=== PATIENT | female | born 1955 | race African-American/Black ===

== ENCOUNTER 2018-10-31 19:33 | Inpatient (IN) | payer OTHER, SELFPAY ==
[2018-10-31 19:44] VITALS: BP 136/92; PULSE 66; RESP 20; TEMP 36.6; O2SAT 100
--- NOTE | 2018-10-31 19:51 | ED.NAVMDI ---
HPI - Nausea/Vomiting/Diarrhea General Chief complaint: Nausea/Vomiting/Diarrhea Stated complaint: N/D Time Seen by Provider: 10/31/18 19:51 Source: patient Mode of arrival: EMS Limitations: no limitations History of Present Illness HPI Narrative: The patient has been ill for 1 month. She describes abdominal pain and swelling. She has low back pain and bilateral leg pain. She has been vomiting. She has decreased appetite. Her bowels work but her bowel output has decreased. She does have loss of weight. She has no associated fever or chills. Urinary output is decreased. Her last urine output was yesterday. She denies dysuria or hematuria. She has no flank pain. She denies fever or chills. She underwent a laparoscopic-assisted hysterectomy with BSO about 1 year ago due to a an intramural leiomyoma. Following the surgery and endometrial adenocarcinoma grade 1 was discovered. Other than the fibroid uterus no other diagnosis was made. She has had no follow-up. Related Data Home Medications Medication Instructions Recorded Confirmed amlodipine 5 mg PO DAILY PRN 10/31/18 10/31/18 gabapentin 300 mg PO TID 10/31/18 10/31/18 ibuprofen 600 mg PO TID PRN 10/31/18 10/31/18 metformin 1,000 mg PO BID 10/31/18 10/31/18 Allergies Allergy/AdvReac Type Severity Reaction Status Date / Time No Known Drug Allergies Allergy Verified 10/31/18 21:27 Review of Systems Review of Systems ROS Unobtainable: All systems reviewed & are unremarkable except as noted in HPI and below Constitutional Denies chills, Denies fever(s), Reports lethargy and Reports weakness ENT Ears, Nose, Mouth, and Throat: Denies change in voice, Denies vertigo and Denies dizziness Cardiovascular Denies chest pain, Denies irregular heart rhythm, Denies lightheadedness, Denies palpitations, Denies dyspnea, Reports dyspnea on exertion and Denies orthopnea Respiratory Denies cough, Denies dyspnea, Reports dyspnea on exertion and Denies wheezing Gastrointestinal Gastrointestinal: Reports abdominal pain, Reports change in bowel habits, Denies nausea and Denies vomiting Genitourinary Denies hematuria, Denies flank pain, Denies urinary incontinence and Reports urinary urgency Musculoskeletal Reports back pain Integumentary/Breasts Denies erythema, Denies rash and Denies wounds Neurologic Denies vertigo, Denies dizziness and Reports weakness Endocrine Denies palpitations Allergic/Immunologic Denies wheezing PFSH Medical History Endometrial/uterine adenocarcinoma (Acute) Fibroid uterus (Acute) Surgical History S/P SOREN-BSO (Acute) Social History additional social history: She lives at home. Social History additional social history: She lives at home. Exam Initial Vital Signs Initial Vital Signs: Vital Signs Temperature 97.8 F 10/31/18 19:44 Pulse Rate 66 10/31/18 19:44 Respiratory Rate 20 10/31/18 19:44 Blood Pressure 136/92 H 10/31/18 19:44 Pulse Oximetry 100 10/31/18 19:44 Const General: cooperative, well developed and ill appearing Nutritional Appearance: well nourished Orientation: alert, awake, oriented x3 and not confused HENMT Mouth: oral mucosae normal Throat: posterior oropharynx normal Eyes General: appearance normal, both eyes and all related structures Eyelids: eyelids normal Conjunctivae: conjunctivae normal Sclera: sclerae normal (No icterus) Pupils: PERRL EOM: EOM intact bilaterally Neck Neck: normal visual inspection, trachea midline, No lymphadenopathy, No midline deformity and No JVD Lymphatic: No lymphedema Chest Chest: normal inspection of the chest Resp Effort & Inspection: normal respiratory effort, able to speak in complete sentences, no respiratory distress and no use of accessory muscles Auscultation: clear to auscultation bilaterally, no rales, no rhonchi and no wheezes Cardio Rate: regular rate Rhythm: regular rhythm Heart Sounds: no click, no gallops, no murmurs and no rubs Pulses: normal peripheral pulses GI Inspection: distended Palpation: soft, no hepatosplenomegaly, No guarding, mass (Large central abdominal mass), No pulsatile mass and tender Auscultation: normal bowel sounds Back/Spine/Pelvis Back: No CVA tenderness Skin General: no rashes or lesions noted Neuro General: alert, oriented x3, gait normal and no focal motor deficits Speech: speech normal Extrem General: full ROM, no pedal edema and no calf tenderness Psych Appearance: well kempt Mental Status: mental status grossly normal Attitude: cooperative Thought Content: normal and suicidality Judgment: judgment good Course Course Narrative: The patient was found to have urinary retention, containing 3.5 L of urine. A Murcia was placed with release of discomfort , the patient did feel much better. She has an elevated creatinine. Baseline labs are unavailable, this was felt to be an obstructive uropathy. On CT there is also a right fluid-filled lesion along the ascending colon, possibly metastatic lesion. I initially discussed the case with surgery, Dr. Starkey. The bladder is not ruptured. There is no obvious fistula. Findings would be atypical for a metastatic lesion. The process of hydrate her through the evening, and repeating labs was discussed. She may benefit from a repeat CT tomorrow. Surgery will consult tomorrow. I discussed the situation with the hospitalist,JULIAN Parks. The patient be admitted for ongoing care. Orders Ordered: ED Orders 10/31/18 20:23 CT abdomen pelvis w con Stat 10/31/18 20:35 Complete Blood Count AUTO DIFF Stat Comprehensive Metabolic Panel Stat Creatine Kinase Stat Lipase Stat 10/31/18 22:25 Ictotest Urine Stat Urinalysis and Microscopic Stat Sodium Chloride (Normal Saline 0.9%) 1,000 mls @ 200 mls/hr IV CONT MAGO Last Infusion: 10/31/18 22:22 Dose: 1,000 mls/hr Admin: 10/31/18 20:34 Dose: 200 mls/hr Discontinued Medications Ondansetron HCl (Zofran) 4 mg IV NOW ONE Stop: 10/31/18 20:24 Last Admin: 10/31/18 20:35 Dose: 4 mg Vital Signs - 8 hr 10/31/18 19:44 10/31/18 22:30 10/31/18 23:00 Temperature 97.8 F Pulse Rate 66 115 H 13 L Respiratory Rate 20 16 20 Blood Pressure 136/92 H Blood Pressure [Right Arm] 145/95 H 142/91 H Pulse Oximetry 100 98 98 10/31/18 23:43 Temperature Pulse Rate 110 H Respiratory Rate Blood Pressure Blood Pressure [Right Arm] Pulse Oximetry MDM - Nausea/Vomiting/Diarrhea Lab Data Result diagrams: 10/31/18 20:35 10/31/18 20:35 Lab Results 10/31/18 10/31/18 10/31/18 Range/Units 20:35 20:35 20:35 WBC 15.1 H (4.5-11.0) X10^3/uL RBC 4.24 (4.0-5.2) X10^6/uL Hgb 12.5 (12.0-16.0) g/dL Hct 37.2 (36-46) % MCV 87.7 (80-100) fL MCH 29.4 (26-34) PG MCHC 33.6 (30-36) % RDW 15.3 H (11.6-14.8) % Plt Count 266 (150-400) X10^3/uL Neut % (Auto) 84.0 H (50-75) % Lymph % (Auto) 5.8 L (25-40) % Posey % (Auto) 9.1 (3-14) % Eos % (Auto) 0.4 L (2-4) % Baso % (Auto) 0.7 (0-2) % Neut # (Auto) 76343 H (5421-2863) /uL Lymph # (Auto) 900 L (2621-3214) /uL Posey # (Auto) 1400 H (0-900) /uL Eos # (Auto) 100 (0-450) /uL Baso # (Auto) 100 (0-100) /uL Sodium 137 (137-145) mmol/L Potassium 3.7 (3.4-5.1) mmol/L Chloride 105 (98-107) mmol/L Carbon Dioxide 19 L (22-32) mmol/L BUN 33 H (7-17) mg/dL Creatinine 1.50 H (0.52-1.04) mg/dL Estimated GFR 35.3 L (>60) mL/min BUN/Creatinine Ratio 22.0 (6-22) Glucose 123 H (80-110) mg/dL Calcium 9.6 (8.4-10.2) mg/dL Total Bilirubin 1.7 H (0.2-1.3) mg/dL AST 30 (14-36) IU/L ALT 42 (9-52) IU/L Alkaline Phosphatase 67 (38-126) U/L Total Creatine Kinase 176 H (30-135) U/L Total Protein 7.8 (6.3-8.2) g/dL Albumin 3.9 (3.5-5.0) g/dL Globulin 3.9 (1.7-4.1) g/dL Albumin/Globulin Ratio 1.0 (1.0-2.8) Lipase 81 (23-300) U/L Urine Color Urine Appearance Urine pH (4.5-8.0) Ur Specific [place] (1.000-1.035) Urine Protein (Negative) Urine Glucose (UA) (Negative) g/dL Urine Ketones (NEGATIVE) Urine Occult Blood (Negative) Urine Nitrate (Negative) Urine Bilirubin (NEGATIVE) Urine Ictotest (Negative) Urine Urobilinogen (0.2) E.U./dL Ur Leukocyte Esterase (NEGATIVE) Urine RBC (0-5/HPF) Urine WBC (0-5/HPF) Ur Squamous Epith Cells Amorphous Sediment Urine Bacteria (None) Ur Culture Indicated? 10/31/18 Range/Units 22:25 WBC (4.5-11.0) X10^3/uL RBC (4.0-5.2) X10^6/uL Hgb (12.0-16.0) g/dL Hct (36-46) % MCV (80-100) fL MCH (26-34) PG MCHC (30-36) % RDW (11.6-14.8) % Plt Count (150-400) X10^3/uL Neut % (Auto) (50-75) % Lymph % (Auto) (25-40) % Posey % (Auto) (3-14) % Eos % (Auto) (2-4) % Baso % (Auto) (0-2) % Neut # (Auto) (3134-1357) /uL Lymph # (Auto) (1474-0609) /uL Posey # (Auto) (0-900) /uL Eos # (Auto) (0-450) /uL Baso # (Auto) (0-100) /uL Sodium (137-145) mmol/L Potassium (3.4-5.1) mmol/L Chloride (98-107) mmol/L Carbon Dioxide (22-32) mmol/L BUN (7-17) mg/dL Creatinine (0.52-1.04) mg/dL Estimated GFR (>60) mL/min BUN/Creatinine Ratio (6-22) Glucose (80-110) mg/dL Calcium (8.4-10.2) mg/dL Total Bilirubin (0.2-1.3) mg/dL AST (14-36) IU/L ALT (9-52) IU/L Alkaline Phosphatase (38-126) U/L Total Creatine Kinase (30-135) U/L Total Protein (6.3-8.2) g/dL Albumin (3.5-5.0) g/dL Globulin (1.7-4.1) g/dL Albumin/Globulin Ratio (1.0-2.8) Lipase (23-300) U/L Urine Color Linnea Urine Appearance Cloudy Urine pH 5.0 (4.5-8.0) Ur Specific [place] 1.020 (1.000-1.035) Urine Protein 1+ H (Negative) Urine Glucose (UA) Negative (Negative) g/dL Urine Ketones Negative (NEGATIVE) Urine Occult Blood 3+ H (Negative) Urine Nitrate Negative (Negative) Urine Bilirubin 1+ H (NEGATIVE) Urine Ictotest Negative (Negative) Urine Urobilinogen 0.2 (0.2) E.U./dL Ur Leukocyte Esterase Negative (NEGATIVE) Urine RBC >100/hpf H (0-5/HPF) Urine WBC None seen (0-5/HPF) Ur Squamous Epith Cells 0-1 /hpf Amorphous Sediment 4+ Urine Bacteria None seen (None) Ur Culture Indicated? Cult not indicated Point of Care Testing Glucose POC [address] scan - abdomen: Radiologist's impression: [place] [address] CT Scan Report Signed Patient: Bina Lopez [facility]#: [id number] : 8Acct:[id number] Age/Sex: 63 / FDate of Service: 10/31/18 Loc: ED Accession Number: [id number] Procedure: CT abdomen pelvis w con Ordering Provider: Ish Chambers M.D. PROCEDURE: CT ABDOMEN PELVIS W CON INDICATIONS: Vomiting. H/O uterine cancer TECHNIQUE: After the administration of intravenous contrast, 5 mm thick sections acquired from the diaphragm to the symphysis. 5 mm coronal and sagittal reformats were acquired. For radiation dose reduction, the following was used: automated exposure control, adjustment of mA and/or kV according to patient size. COMPARISON: None. FINDINGS: Image quality: Excellent. ABDOMEN: Lung bases: Lung bases are clear. Heart size is normal. Solid organs: Liver is normal in size and enhancement. Gallbladder is distended.. Biliary system is non dilated. Pancreas enhances normally. Spleen is normal in size and enhancement. No adrenal nodules. Kidneys demonstrate normal size and enhancement, without hydronephrosis. Peritoneum and bowel: Bowel loops demonstrate normal wall thickness and caliber. No free fluid or air. Nodes and vessels: No retroperitoneal or mesenteric adenopathy by size criteria. Aorta and inferior vena cava are normal in size. Miscellaneous: No ventral hernias. PELVIS: Genitourinary: There is a massively enlarged fluid-filled central pelvic mass, which is either a markedly distended bladder or a extremely large cystic ovarian neoplasm measuring approximately 25.6 x 13.9 x 19.2 cm. There is a low density mass lateral to the ascending colon which measures 13.6 x 12.2 x 6.9 cm, consistent with a mucin producing metastatic lesion. Miscellaneous: No inguinal hernias or adenopathy. Bones: No suspicious bony lesions. No vertebral body compression fractures. IMPRESSION: 1. A remarkably large fluid contained central pelvic mass either represents a remarkably distended bladder or a cystic ovarian neoplasm. 2. There is a large presumed metastatic fluid-filled lesion lateral to the ascending colon. It may represent malignant ascites. Comment: Murcia catheter placement with differentiate between a cystic ovarian mass and a markedly distended bladder. Comment: Findings were discussed with Dr. Chambers at the time of study dictation. Dictated by: Martin Rodrigues M.D. on 10/31/2018 at 22:07 Approved by: Martin Rodrigues M.D. on 10/31/2018 at 22:20 Discharge Plan Departure Patient Disposition: Admitted as Observation Clinical Impression: Acute urinary retention, Obstructive uropathy Admit Date/Time: 10/31/18 23:41 Admit Provider: Arianna Parks
--- NOTE | 2018-10-31 20:23 | DI.CT.S_ITS ---
PROCEDURE: CT ABDOMEN PELVIS W CON INDICATIONS: Vomiting. H/O uterine cancer TECHNIQUE: After the administration of intravenous contrast, 5 mm thick sections acquired from the diaphragm to the symphysis. 5 mm coronal and sagittal reformats were acquired. For radiation dose reduction, the following was used: automated exposure control, adjustment of mA and/or kV according to patient size. COMPARISON: None. FINDINGS: Image quality: Excellent. ABDOMEN: Lung bases: Lung bases are clear. Heart size is normal. Solid organs: Liver is normal in size and enhancement. Gallbladder is distended.. Biliary system is non dilated. Pancreas enhances normally. Spleen is normal in size and enhancement. No adrenal nodules. Kidneys demonstrate normal size and enhancement, without hydronephrosis. Peritoneum and bowel: Bowel loops demonstrate normal wall thickness and caliber. No free fluid or air. Nodes and vessels: No retroperitoneal or mesenteric adenopathy by size criteria. Aorta and inferior vena cava are normal in size. Miscellaneous: No ventral hernias. PELVIS: Genitourinary: There is a massively enlarged fluid-filled central pelvic mass, which is either a markedly distended bladder or a extremely large cystic ovarian neoplasm measuring approximately 25.6 x 13.9 x 19.2 cm. There is a low density mass lateral to the ascending colon which measures 13.6 x 12.2 x 6.9 cm, consistent with a mucin producing metastatic lesion. Miscellaneous: No inguinal hernias or adenopathy. Bones: No suspicious bony lesions. No vertebral body compression fractures. IMPRESSION: 1. A remarkably large fluid contained central pelvic mass either represents a remarkably distended bladder or a cystic ovarian neoplasm. 2. There is a large presumed metastatic fluid-filled lesion lateral to the ascending colon. It may represent malignant ascites. Comment: Murcia catheter placement with differentiate between a cystic ovarian mass and a markedly distended bladder. Comment: Findings were discussed with Dr. Chambers at the time of study dictation. Dictated by: Martin Rodrigues M.D. on 10/31/2018 at 22:07 Approved by: Martin Rodrigues M.D. on 10/31/2018 at 22:20
[2018-10-31] MEDS: SODIUM CHLORIDE 0.9% 1,000 ML 200 ML IV (20:34)
[2018-10-31] MEDS: ONDANSETRON 4 MG/2 ML INJ IV (20:35)
[2018-10-31 20:46] LABS: Add Manual Diff / Slide Review NO; Basophils Absolute Auto 100 /uL (0-100); Basophils Percent Auto 0.7 % (0-2); Eosinophils Absolute Auto 100 /uL (0-450); Eosinophils Percent Auto 0.4 % (2-4); Hematocrit 37.2 % (36-46); Hemoglobin 12.5 g/dL (12.0-16.0); Lymphocytes Absolute Auto 900 /uL (1100-4500); Lymphocytes Percent Auto 5.8 % (25-40); Mean Corpuscular HGB Conc 33.6 % (30-36); Mean Corpuscular Hemoglobin 29.4 PG (26-34); Mean Corpuscular Volume 87.7 fL (80-100); Monocytes Absolute Auto 1400 /uL (0-900); Monocytes Percent Auto 9.1 % (3-14); Neutrophils Absolute Auto 12700 /uL (1500-7000); Platelet Count 266 X10^3/uL (150-400); Red Blood Cell Count 4.24 X10^6/uL (4.0-5.2); Red Cell Distribution Width 15.3 % (11.6-14.8); White Blood Cell Count 15.1 X10^3/uL (4.5-11.0)
[2018-10-31 21:13] LABS: Alanine Aminotransferase 42 IU/L (9-52); Albumin 3.9 g/dL (3.5-5.0); Alkaline Phosphatase 67 U/L (38-126); Aspartate Aminotransferase 30 IU/L (14-36); Bilirubin Total 1.7 mg/dL (0.2-1.3); Blood Urea Nitrogen 33 mg/dL (7-17); Calcium 9.6 mg/dL (8.4-10.2); Carbon Dioxide 19 mmol/L (22-32); Chloride 105 mmol/L (98-107); Estimated Glomerular Filt Rate 35.3 mL/min (>60); Globulin 3.9 g/dL (1.7-4.1); Glucose 123 mg/dL (80-110); HEMOLYSIS < 15 (0-50); Lipase 81 U/L (23-300); Potassium 3.7 mmol/L (3.4-5.1); Sodium 137 mmol/L (137-145); Total Protein 7.8 g/dL (6.3-8.2)
[2018-10-31 22:30] VITALS: BP 145/95; PULSE 115; RESP 16; O2SAT 98
[2018-10-31 22:44] LABS: Creatine Kinase 176 U/L (30-135)
[2018-10-31 22:58] LABS: Bacteria Urine None Seen; WBC Urine None Seen (0-5/HPF)
[2018-10-31 23:00] VITALS: BP 142/91; PULSE 13; RESP 20; O2SAT 98
[2018-10-31 23:04] LABS: Appearance Urine UA CLOUDY; Bilirubin Urine UA 1+ (NEGATIVE); Glucose Urine UA NEGATIVE (Negative); Ketones Urine UA NEGATIVE (NEGATIVE); Leukocyte Esterase Urine UA NEGATIVE (NEGATIVE); Nitrite Urine UA NEGATIVE (Negative); Occult Blood Urine UA 3+ (Negative); Protein Urine UA 1+ (Negative); Urobilinogen Urine UA 0.2 E.U./dL (0.2)
[2018-10-31 23:06] LABS: Color Urine UA Amber
[2018-10-31 23:16] LABS: Ictotest Urine Negative (Negative)
[2018-10-31 23:17] LABS: Amorphous Sediment Urine 4+; Culture Indicated Urine Cult Not Indicated; RBC Urine >100/HPF (0-5/HPF); Squamous Epithelial Cell Urine 0-1 /HPF
[2018-10-31 23:43] VITALS: PULSE 110
[2018-11-01] VITALS (7 sets, daily range): BP systolic 132–147; BP diastolic 69–93; PULSE 110–119; RESP 16–21; TEMP 35.7–36.7; O2SAT 98–100; BMI 29.9
--- NOTE | 2018-11-01 | DI.MRI.S_ITS ---
PROCEDURE: MR ABDOME PELVIS WWO CON INDICATIONS: Complex clinical history of reported prior endometrial polyp reportedly having malignancy, without subsequent followup. Also, worsening neuromuscular disorder and falls. 3 L bladder distention, treated with Murcia catheter. Ultrasound finding of right-sided lower extremity and pelvic vein DVT. Masslike structure versus hematoma right paracolic gutter. TECHNIQUE: Coronal HASTE, axial 2D FLASH in- and [id number]; axial breath-hold T2 FSE; dynamic axial VIBE during IV gadolinium administration; postgadolinium coronal VIBE or 2D FLASH with fat saturation from the hepatic dome to the iliac crests. COMPARISON: [facility], CT, CT ABDOMEN PELVIS W CON, 10/31/2018, 21:15. [facility], US, US ABDOMEN COMPLETE, 11/01/2018, 9:31. [facility][1], RG, CT HEAD W/O CONTRAST, 08/28/2018, 16:31. FINDINGS: Image quality: Excellent. Lung bases: No lesion. Solid organs and gallbladder: No lesion. Nodes and vessels: No lesion identified. Bowel and peritoneum: No intrinsic lesion seen. Along the right paracolic gutter corresponding to the findings of CT scanning there is a curvilinear masslike structure with a maximal AP and transverse dimension of 11.1 cm x 5.5 cm. This has a craniocaudad length of 16.[address] scanning. It tapers inferiorly into the pelvis. On precontrast T1 axial imaging this mass does not contain fluid levels or significant heterogeneity of the T1 signal. On postcontrast imaging this shows heterogeneous contrast enhancement, with an appearance of neoplasm rather than hematoma by MR scanning characteristics. Pelvis: The bladder on CT scanning had been markedly distended, and a Murcia catheter currently is in position emptying the bladder lumen largely. The bladder wall is thickened, measuring up to 2.3 cm but a discrete polypoid mass at the bladder itself is not present. Deep venous thrombosis seen at the right superior superficial femoral vein and extending contiguously into the common femoral vein does not clearly extend into the external iliac vein at this time. No left-sided DVT found. The inferior vena cava is patent. Bones and soft tissues: Note is made of a small amount of rim enhancing fluid at the lateral and medial border of the greater trochanter right hip. This is considered most likely evidence of prior trauma by position and appearance and the clinical history of multiple recent falls with injury on the right. The small fluid collections measure approximately 1.5 cm in maximal dimension each. IMPRESSION: 1. The masslike structure along the right paracolic gutter extending into the pelvis shows contrast enhancement and has an imaging characteristic of probable malignancy. This appears accessible for safe CT guided biopsy. The findings are not suggestive of posttraumatic hematoma as the underlying cause. 2. Ultrasound-documented DVT at the right lower extremity and groin area is seen to be present, nonocclusive, and does not extend at this time into the iliac veins on the right. 3. Gallbladder caliber is relatively large, a gallstone has been identified at the gallbladder neck area by ultrasound earlier today. This calculus is only partially visualized, and is not associated with evidence of acute cholecystitis. Gallbladder hydrops is suspected, and there is potential for progression to obstruction of the gallbladder given the position of the calculus identified at the gallbladder neck. Intrahepatic biliary distention is not present. 3. The bladder is now empty by a Murcia catheter centrally positioned. Bladder wall thickening is present but uniform, likely reflecting chronic distention. Resolution of previously identified right-sided hydronephrosis seen on prior CT scanning during imaging with extensive bladder distention at that time. 4. Suspect right hip region trauma given the presence of a small set of adjacent fluid collections abutting the greater trochanter both medially and laterally, without suspicion for hip fracture. Posttraumatic hematoma or seroma is the presumed cause. Dictated by: Matthias Campbell M.D. on 11/01/2018 at 14:37 Approved by: Matthias Campbell M.D. on 11/01/2018 at 14:55
--- NOTE | 2018-11-01 | DI.US.S_ITS ---
PROCEDURE: US ABDOMEN COMPLETE INDICATIONS: ASSESS KIDNEYS AND URETERS FOR MASS, CENTRAL MASS TECHNIQUE: Real-time scanning was performed of the abdominal and retroperitoneal organs, with image documentation. COMPARISON: [facility], CT, CT ABDOMEN PELVIS W CON, 10/31/2018, 21:15. FINDINGS: Liver: Liver is normal in size and homogeneous in echotexture, diffusely hyperechoic except for a small area of hypoechoic echotexture adjacent to the gallbladder fossa, measuring 7 x 10 x 18 mm, consistent with focal sparing from the otherwise diffuse presumed fatty infiltrate. Gallbladder: The gallbladder contains at least 1 ovoid stone measuring up to 6 x 11 x 17 mm with shadowing, at the gallbladder neck. This likely is a gallstone and does not appear entirely obstructive. Biliary ducts: Intrahepatic bile ducts are non-dilated. Extrahepatic bile duct caliber measures 6 mm. Normal is 6-7 mm or less in diameter, or 10 mm or less post-cholecystectomy. Pancreas: Visualized portions of the pancreas are sonographically normal. Spleen: Spleen is normal in size and homogeneous in echotexture. Kidneys: Kidneys are normal in size and echotexture. Right kidney measures 9.6 cm long; left kidney measures a similar 9.5 cm long, but is less well visualized due to bowel gas. On CT scanning the kidneys appear free of mass or calculus. Note is made of resolution of right-sided hydronephrosis present during CT scanning 10/31/18, 1 day ago. No hydronephrosis or nephrolithiasis. No solid masses. Aorta: Visualized aorta is normal in caliber at less than 3 cm. Iliacs: Proximal common iliac arteries are normal in caliber at less than 2.5 cm. IVC: Intrahepatic inferior vena cava is patent. Miscellaneous: No free abdominal fluid. The bladder is empty except for a Murcia catheter in place. The right lower quadrant there is a complex heterogeneous structure possibly hematoma or mass, measuring up to 5.3 x 7.0 cm in axial dimension and almost 13 cm craniocaudad. The patient reports a fall on the right side approximately 4 weeks ago. IMPRESSION: 1. Resolution of right sided hydronephrosis after drainage of the markedly distended bladder by a Murcia catheter in place. 2. No renal cortical mass is seen in the area where the right kidney can be effectively visualized. The left kidney is poorly seen due to bowel gas. Please refer also to the prior CT scanning and subsequent MR scanning over the prior 2 days that include visualization of the kidneys. 3. An ovoid complex structure is seen within the right paracolic gutter area, as was seen also during CT scanning 10/31/18, measuring up to 5.3 x 7.0 x 13.0 cm. This also wasn't well-seen by CT scanning, and also is evaluated by MR scanning. The appearance conceivably could represent a posttraumatic hematoma. 4. Ovoid shadowing gallstone within the gallbladder lumen at the gallbladder neck, but acute cholecystitis or biliary obstruction is not found. Dictated by: Mattihas Campbell M.D. on 11/01/2018 at 11:39 Approved by: Matthias Campbell M.D. on 11/01/2018 at 11:48
--- NOTE | 2018-11-01 | DI.US.S_ITS ---
PROCEDURE: US PERIPH VENOUS LOW EXTREM BI INDICATIONS: debility, dyspnea, calf pain, malignancy TECHNIQUE: Real-time imaging, as well as color and pulse Doppler interrogation, were performed of the deep veins of both legs from the inguinal ligament to the popliteal fossa. COMPARISON: None. FINDINGS: The bilateral assessment performed. No left-sided DVT found. There is thrombosis within the deep venous system of the right lower extremity, at the common femoral vein, the superficial femoral vein and extending into the popliteal vein. Right-sided thrombosis can be seen extending cephalad into the pelvis, involving the right iliac vein. IMPRESSION: Extensive right-sided deep venous thrombosis including extending cephalad from the common femoral vein into the iliac vein. The exact cephalad extent of pelvic deep venous thrombosis is not established by this study. It could be further established by CT scanning in venous phase of enhancement if clinically warranted. These findings were conveyed to the nurse caring for the patient to convey personally to the hospitalist, and I personally have attempted to reach the hospitalist also, accomplishing only a voicemail to Dr. Mclaughlin's cell phone number. I will continue to attempt to reach the hospitalist in person to discuss these findings. Dictated by: Matthias Campbell M.D. on 11/01/2018 at 8:55 Approved by: Matthias Campbell M.D. on 11/01/2018 at 8:59
--- NOTE | 2018-11-01 00:58 | P.HP_ITS ---
History of Present Illness Date Patient Seen: 11/01/18 Chief complaint: N/D Narrative: The patient is a 63-year-old AA female who presented to the ED with a 3 week history of nausea and vomiting. Patient has been having progressively deteriorating state of health since February of 2018. Prior to that she notes herself to be fairly healthy and fully ambulatory w/ PMH of HTN and DM 2T. Associated symptoms include difficulty swallowing (new symptom for patient ); however, she does note being able to manage oral secretions. Reports abdominal distention and dyspepsia; but no overt abdominal pain. Reports subjective fever and chills. Experienced dizziness and lightheadedness w/ position change. Patient reports an unintentional weight loss of 70-80 lb weight loss over the past 6 months. Notes joint and muscle pain. Reports progressive loss of function of lower extremities since March of 2018. Initially presented as lower back and hip pain (worse on the right) with progressive bilateral lower extremity weakness. Reports progressive loss of lower extremity function and ability to walk. Denies loss of bowel and bladder control. Currently, bed- bound and minimally ambulatory since July of 2018. Denies dysuria, hematuria. Notes decreased urine output. Reports having a neurosurgical evaluation w/ Micheline Nugent in July and a diagnosis of diabetic amyotrophy. Reports having EMG and MRI imaging done at that time. Patient was diagnosed with intramural leiomyoma and underwent laparoscopic-assisted hysterectomy with BSO 1 year ago, respectively. 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 However, from what patient reports, she understood this as fairly benign. 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 Phuong Martinez [facility]. Sarahi dick's PCP is Dr. Clarissa Metzger [facility]. Prior to February of 2018 patient was fully in functionally independent. She lives on her own, however visited her parents (who are in ill state of health themselves) in fall and was unable to leave due to progressive debility. At present time her aunt is visiting to help with the care of the patient. Patient has extensive family history of malignancy, father (colon cancer), mother (uterine and colon cancer), and sister ( (40 y.o.), pancreatic cancer. ED evaluation revealed abnormal CT imaging Remarkable for enlarged fluid- filled central pelvic mass, distended bladder, concern for a large ovarian neoplasm, a load density mass lateral to the ascending colon and concern for metastatic lesion. Patient History Medical History Endometrial/uterine adenocarcinoma (Acute) Fibroid uterus (Acute) Surgical History S/P SOREN-BSO (Acute) Social History additional social history: She lives at home. Meds Home Medications Medication Instructions Recorded Confirmed Type amlodipine 5 mg PO DAILY PRN 10/31/18 10/31/18 History gabapentin 300 mg PO TID 10/31/18 10/31/18 History ibuprofen 600 mg PO TID PRN 10/31/18 10/31/18 History metformin 1,000 mg PO BID 10/31/18 10/31/18 History Allergies Allergy/AdvReac Type Severity Reaction Status Date / Time No Known Drug Allergies Allergy Verified 10/31/18 21:27 Exam Vital Signs (past 8 hours): - 10/31/18 19:44 10/31/18 22:30 10/31/18 23:00 Temperature 97.8 F Pulse Rate 66 115 H 13 L Respiratory Rate 20 16 20 Blood Pressure 136/92 H Blood Pressure [Right Arm] 145/95 H 142/91 H Pulse Oximetry 100 98 98 10/31/18 23:43 11/01/18 00:30 Temperature Pulse Rate 110 H 110 H Respiratory Rate 21 Blood Pressure 140/69 Blood Pressure [Right Arm] Pulse Oximetry 99 Oxygen Delivery Method Room Air Objective Labs Result Diagrams: 10/31/18 20:35 10/31/18 20:35 Labs: Laboratory Results - last 24 hr 10/31/18 10/31/18 10/31/18 20:35 20:35 20:35 WBC 15.1 H RBC 4.24 Hgb 12.5 Hct 37.2 MCV 87.7 MCH 29.4 MCHC 33.6 RDW 15.3 H Plt Count 266 Neut % (Auto) 84.0 H Lymph % (Auto) 5.8 L [place] % (Auto) 9.1 Eos % (Auto) 0.4 L Baso % (Auto) 0.7 Neut # (Auto) 56205 H Lymph # (Auto) 900 L [place] # (Auto) 1400 H Eos # (Auto) 100 Baso # (Auto) 100 Sodium 137 Potassium 3.7 Chloride 105 Carbon Dioxide 19 L BUN 33 H Creatinine 1.50 H Estimated GFR 35.3 L BUN/Creatinine Ratio 22.0 Glucose 123 H Calcium 9.6 Total Bilirubin 1.7 H AST 30 ALT 42 Alkaline Phosphatase 67 Total Creatine Kinase 176 H Total Protein 7.8 Albumin 3.9 Globulin 3.9 Albumin/Globulin Ratio 1.0 Lipase 81 Urine Color Urine Appearance Urine pH Ur Specific [place] Urine Protein Urine Glucose (UA) Urine Ketones Urine Occult Blood Urine Nitrate Urine Bilirubin Urine Ictotest Urine Urobilinogen Ur Leukocyte Esterase Urine RBC Urine WBC Ur Squamous Epith Cells Amorphous Sediment Urine Bacteria Ur Culture Indicated? 10/31/18 22:25 WBC RBC Hgb Hct MCV MCH MCHC RDW Plt Count Neut % (Auto) Lymph % (Auto) [place] % (Auto) Eos % (Auto) Baso % (Auto) Neut # (Auto) Lymph # (Auto) [place] # (Auto) Eos # (Auto) Baso # (Auto) Sodium Potassium Chloride Carbon Dioxide BUN Creatinine Estimated GFR BUN/Creatinine Ratio Glucose Calcium Total Bilirubin AST ALT Alkaline Phosphatase Total Creatine Kinase Total Protein Albumin Globulin Albumin/Globulin Ratio Lipase Urine Color Linnea Urine Appearance Cloudy Urine pH 5.0 Ur Specific [place] 1.020 Urine Protein 1+ H Urine Glucose (UA) Negative Urine Ketones Negative Urine Occult Blood 3+ H Urine Nitrate Negative Urine Bilirubin 1+ H Urine Ictotest Negative Urine Urobilinogen 0.2 Ur Leukocyte Esterase Negative Urine RBC >100/hpf H Urine WBC None seen Ur Squamous Epith Cells 0-1 /hpf Amorphous Sediment 4+ Urine Bacteria None seen Ur Culture Indicated? Cult not indicated Assessment & Plan Assessment & Plan narrative: Acute urinary retention, present on admission 2/2 suspected obstructive uropathy, 2.5L urine output w/ bladder decompression - Murcia catheter in place for bladder decompression - IVF at 125 ml/hr - I/O monitoring - May need a urological evaluation Abnormal CT imaging, acute, present on admission pelvic mass vs. distended bladder vs large cystic ovarian neoplasm Kidneys noted to be normal in size and enhancement without hydronephrosis - follow-up imaging after bladder decompression was recommended Metastatic disease, acute, present on admission H/O endometrial adeno carcinoma grade [address] imagining remakable for low-density mass lateral to the ascending colon, 13.6 x 12.2 x 6.9 cm, consistent with mucin producing metastatic lesion - requires further workup - loss of lower extremity function, with recently presumed diagnosis of diabetic amyotrophy, will need to consider r/o metastasis to thoracic organs, peritonieum and IMPLEMENTATION SPECIALIST, will need an MRI - general surgery consulted in ED Muscle weakness, acute onset, rapidly worsening, present on admission Recent diagnosis of diabetic amyotrophy by neurosurgery, Dr. Micheline Nugent. DDx consider metastatic metastatic spread - request placed for records from neuro surgery, per patient had an EMG and MRI done in July - PT eval and treat Dyspnea, present on admission, reported by patient w/ associated bilateral calf tenderness, suspected malignancy - BLE venous duplex to r/o DVT - Check Trop - On lovenox VTE prophylactic dose, no prior h/o DVT or PE Dysphagia, acute onset - last 3 weeks, present on admission - NPO until seen by speech therapy - consult speech, eval and treat JASE, sCr 1.5, likely acute (baseline sCr unknown), present on admission - IV fluids - D/C metformin, received imaging with IV contrast - Trend renal fx Metabolic acidosis with normal AG, present on admission 2/2 JASE, hypovolemia, GI losses - IVF Leukocytosis, acute, present on admission WBC 15.1 subjective fever and chills. UA is not consistent with infectious process. potentially reactive. no signs of SIRS or sepsis. 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
--- NOTE | 2018-11-01 01:00 | PC.NURSE ---
Addendum entered by Nancie Keen R.N. 11/01/18 06:09: Admission assessment complete. pt reports a history of falls at home within the last 3 months, states her health has been deteriorating since the summer (2018). Has amyotrophy which is effecting the use of her lower extremities. Denying pain currently. Gave home medications (ibruprophen 600mg and gabepentin 300mg) to coordinator to place in pharmacy. Each bottle has pt label on it. Patient does have purse at bedside and declines the use of our safe. No hearing loss or aids, wears glasses. Original Note: pt arrived 0045. VS stable. Reporting pain 8/10 in bilateral legs and states its her baseline from neuropathy. Takes Gabapentin and metformin to manage diabetes (no insulin). Murcia draining to gravity with dark colored urine. pt reports utilizing briefs due to urgency issues. Her family provides care (aunt and parents). Patient is requesting bilingual social worker consult because she does not have any adaptive equipment at home. ER reports 3.5L emptied from bladder and pt reporting less abdominal distention since. pt thought the distention feeling was part of her neuropathy. pt is unable to move legs (bilateral) to gravity, able to help reposition and raise arms to gravity and resistance.
[2018-11-01] MEDS: SODIUM CHLORIDE 0.9% 1,000 ML 125 ML IV (06:33)
[2018-11-01 06:42] LABS: Add Manual Diff / Slide Review NO; Basophils Absolute Auto 0 /uL (0-100); Basophils Percent Auto 0.2 % (0-2); Eosinophils Absolute Auto 100 /uL (0-450); Eosinophils Percent Auto 0.6 % (2-4); Hematocrit 32.9 % (36-46); Lymphocytes Absolute Auto 1000 /uL (1100-4500); Lymphocytes Percent Auto 7.6 % (25-40); Mean Corpuscular HGB Conc 33.4 % (30-36); Mean Corpuscular Hemoglobin 29.3 PG (26-34); Mean Corpuscular Volume 87.7 fL (80-100); Monocytes Absolute Auto 1400 /uL (0-900); Monocytes Percent Auto 10.2 % (3-14); Neutrophils Absolute Auto 11100 /uL (1500-7000); Neutrophils Percent Auto 81.4 % (50-75); Platelet Count 222 X10^3/uL (150-400); Red Blood Cell Count 3.76 X10^6/uL (4.0-5.2); Red Cell Distribution Width 15.6 % (11.6-14.8); White Blood Cell Count 13.7 X10^3/uL (4.5-11.0)
[2018-11-01 06:53] LABS: Creatine Kinase 170 U/L (30-135)
[2018-11-01 06:54] LABS: BUN Creatinine Ratio 26.7 (6-22); Blood Urea Nitrogen 32 mg/dL (7-17); Calcium 8.7 mg/dL (8.4-10.2); Carbon Dioxide 20 mmol/L (22-32); Chloride 108 mmol/L (98-107); Estimated Glomerular Filt Rate 45.7 mL/min (>60); Glucose 96 mg/dL (80-110); HEMOLYSIS < 15 (0-50); Phosphorous 3.7 mg/dL (2.8-4.1); Potassium 3.4 mmol/L (3.4-5.1); Sodium 138 mmol/L (137-145)
[2018-11-01 07:06] LABS: Troponin I 0.065 ng/mL (0.01-0.034)
[2018-11-01] MEDS: ENOXAPARIN 100 MG/ML SYRINGE 90 MG SUBCUT ×2 (09:12→21:02)
[2018-11-01] MEDS: INFLUENZA VACCINE 0.5 ML SYRINGE IM (09:14)
--- NOTE | 2018-11-01 09:55 | PM.CN ---
History of Present Illness Date Patient Seen: 11/01/18 Time Patient Seen: 09:55 Chief complaint: N/D Reason for consult: Abdominal mass Requesting provider: Barbara Mclaughlin Narrative: 63-year-old female with complicated medical history who has had gradual debilitation over the last 6 months in her overall health status. She reports that in the February of 2018 she was doing quite well and functioning at her baseline. She lives alone and was able to perform all of her usual household duties and work full-time. She had no issues with pain or weakness but then began to notice gradual onset of progressive fatigue. She also began to have lower extremity weakness along with symptoms consistent with neuropathy in the finger tips and her toes. 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 Several months ago she began to have difficulties with balance and fell on her stairway. She suffer no injuries. She has no history of any other traumas. She denies any fever or chills. No night sweats. No dysphagia. Appetite has been normal but she has continued to experience significant lower extremity weakness. She came to visit her parents locally for 2017 and she began to have multiple falls in their home environment. Eventually she was unable to ambulate unassisted after initially relying on a cane. She reports now that she is completely bedridden and unable to ambulate, and she has been in this situation for the last 1-2 months. She has sought extensive medical evaluation including neurology in [place], [place] where she was given the diagnosis of diabetic amyotrophic disorder. She is currently awaiting evaluation at the [facility] for potential rehabilitation. She presented to the emergency department last evening at [facility] with complaints of abdominal pain and distention. Examination confirmed an extremely distended urinary bladder containing at least 3 L of urine. Patient states that she has not had any unusual sensation to urinate but on further history today states that she has gradually lost a sensation to urinate. Nonetheless she does urinate several times per day. She reports normal bowel function. No incontinence. In the emergency department Murcia catheter was inserted draining approximately 3.5 L of dark urine. Creatinine was elevated at 1.[address] scan prior to Murcia catheter insertion revealed not only the distended urinary bladder but an obvious complex mass in the right pericolic gutter. Some hydronephrosis is present on the right side as well. She does have a history of endometrial adenocarcinoma found incidentally at the time of laparoscopic-assisted vaginal hysterectomy in October 2017. However, the tumor was quite isolated to the endometrium. Ovaries and fallopian tubes removed at that time and were otherwise normal according to the pathology report that is on the chart today. No lymph nodes were sampled. She had no other complications following surgery, and she states she was seen by Medical Oncology who recommended no further therapy. She denies any abdominal pain currently. 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 Social History household members: none Smoking Status: Never smoker additional social history: She lives at home. Meds Home Medications Medication Instructions Recorded Confirmed Type amlodipine 5 mg PO DAILY PRN 10/31/18 10/31/18 History gabapentin 300 mg PO TID 10/31/18 10/31/18 History ibuprofen 600 mg PO TID PRN 10/31/18 10/31/18 History metformin 1,000 mg PO BID 10/31/18 10/31/18 History Allergies Allergy/AdvReac Type Severity Reaction Status Date / Time No Known Drug Allergies Allergy Verified 10/31/18 21:27 Review of Systems Review of Systems All systems reviewed & are unremarkable except as noted in HPI and below Exam Vital Signs (past 8 hours): - 11/01/18 06:40 11/01/18 08:00 Temperature 97.6 F 97.7 F Pulse Rate 113 H 116 H Respiratory Rate 16 18 Blood Pressure 132/91 H 140/76 Pulse Oximetry 99 99 Oxygen Delivery Method Room Air Narrative Exam Narrative: Well-nourished well-developed female lying comfortably in bed in no acute distress. Alert oriented x3. She does have a mildly weak voice and speaks in shortened sentences. No dyspnea. No stridor. She is not tachypneic Chest clear to auscultation bilaterally. Regular rate and rhythm No crackles or wheezes Abdomen is soft, nondistended, no masses. No hepatomegaly. No obvious ascites. No significant tenderness. Murcia catheter is in place draining clear yellow urine this morning. Creatinine has improved to 1.2 She has minimally diminished but symmetric auto hauler strength in the bilateral upper extremities. She has full range of motion of the shoulder, elbow, and wrist with what I would consider normal strength for her age group. Lower extremities, however, show significant weakness and she is barely able to dorsiflex her feet. Ft are otherwise perfused and dorsal pedis pulses are palpable bilaterally. Objective Labs Result Diagrams: 11/01/18 06:20 11/01/18 06:20 Labs: Laboratory Results - last 24 hr 10/31/18 10/31/18 10/31/18 20:35 20:35 20:35 WBC 15.1 H RBC 4.24 Hgb 12.5 Hct 37.2 MCV 87.7 MCH 29.4 MCHC 33.6 RDW 15.3 H Plt Count 266 Neut % (Auto) 84.0 H Lymph % (Auto) 5.8 L Clarke % (Auto) 9.1 Eos % (Auto) 0.4 L Baso % (Auto) 0.7 Neut # (Auto) 81533 H Lymph # (Auto) 900 L Clarke # (Auto) 1400 H Eos # (Auto) 100 Baso # (Auto) 100 Sodium 137 Potassium 3.7 Chloride 105 Carbon Dioxide 19 L BUN 33 H Creatinine 1.50 H Estimated GFR 35.3 L BUN/Creatinine Ratio 22.0 Glucose 123 H Lactate Calcium 9.6 Phosphorus Total Bilirubin 1.7 H AST 30 ALT 42 Alkaline Phosphatase 67 Total Creatine Kinase 176 H Troponin I Total Protein 7.8 Albumin 3.9 Globulin 3.9 Albumin/Globulin Ratio 1.0 Lipase 81 Urine Color Urine Appearance Urine pH Ur Specific [place] Urine Protein Urine Glucose (UA) Urine Ketones Urine Occult Blood Urine Nitrate Urine Bilirubin Urine Ictotest Urine Urobilinogen Ur Leukocyte Esterase Urine RBC Urine WBC Ur Squamous Epith Cells Amorphous Sediment Urine Bacteria Ur Culture Indicated? 10/31/18 11/01/18 11/01/18 22:25 06:20 06:20 WBC 13.7 H RBC 3.76 L Hgb 11.0 L Hct 32.9 L MCV 87.7 MCH 29.3 MCHC 33.4 RDW 15.6 H Plt Count 222 Neut % (Auto) 81.4 H Lymph % (Auto) 7.6 L Clarke % (Auto) 10.2 Eos % (Auto) 0.6 L Baso % (Auto) 0.2 Neut # (Auto) 80142 H Lymph # (Auto) 1000 L Clarke # (Auto) 1400 H Eos # (Auto) 100 Baso # (Auto) 0 Sodium Potassium Chloride Carbon Dioxide BUN Creatinine Estimated GFR BUN/Creatinine Ratio Glucose Lactate 1.0 Calcium Phosphorus Total Bilirubin AST ALT Alkaline Phosphatase Total Creatine Kinase Troponin I Total Protein Albumin Globulin Albumin/Globulin Ratio Lipase Urine Color Linnea Urine Appearance Cloudy Urine pH 5.0 Ur Specific [place] 1.020 Urine Protein 1+ H Urine Glucose (UA) Negative Urine Ketones Negative Urine Occult Blood 3+ H Urine Nitrate Negative Urine Bilirubin 1+ H Urine Ictotest Negative Urine Urobilinogen 0.2 Ur Leukocyte Esterase Negative Urine RBC >100/hpf H Urine WBC None seen Ur Squamous Epith Cells 0-1 /hpf Amorphous Sediment 4+ Urine Bacteria None seen Ur Culture Indicated? Cult not indicated 11/01/18 11/01/18 06:20 06:20 WBC RBC Hgb Hct MCV MCH MCHC RDW Plt Count Neut % (Auto) Lymph % (Auto) [place] % (Auto) Eos % (Auto) Baso % (Auto) Neut # (Auto) Lymph # (Auto) Clarke # (Auto) Eos # (Auto) Baso # (Auto) Sodium 138 Potassium 3.4 Chloride 108 H Carbon Dioxide 20 L BUN 32 H Creatinine 1.20 H Estimated GFR 45.7 L BUN/Creatinine Ratio 26.7 H Glucose 96 Lactate Calcium 8.7 Phosphorus 3.7 Total Bilirubin AST ALT Alkaline Phosphatase Total Creatine Kinase 170 H Troponin I 0.065 H Total Protein Albumin 3.0 L Globulin Albumin/Globulin Ratio Lipase Urine Color Urine Appearance Urine pH Ur Specific [place] Urine Protein Urine Glucose (UA) Urine Ketones Urine Occult Blood Urine Nitrate Urine Bilirubin Urine Ictotest Urine Urobilinogen Ur Leukocyte Esterase Urine RBC Urine WBC Ur Squamous Epith Cells Amorphous Sediment Urine Bacteria Ur Culture Indicated? I reviewed her records from her vaginal hysterectomy last year. Findings are as above. I reviewed her CT scan of the abdomen and pelvis done here in the emergency department last night. Again, findings are as above. There is a complex mucinous appearing mass in the right pericolic gutter. No retroperitoneal lymphadenopathy. No obvious hepatic lesions. CT scan of the head was done at an outlying institution in July 2018. I personally reviewed these films. There is no obvious intracranial lesion. We do not yet have access to the records from her neurology consultation in [place], [place]. She states she had an MRI of the spine which was normal. We are trying to obtain those records now. Assessment & Plan Assessment & Plan narrative: 63-year-old female with complicated medical history and evidence of progressive neurologic degeneration. She appears to have presented with neurogenic bladder. Overall symptoms over the last 6 months would tend to suggest a deteriorating neurologic disorders such as ALS or multiple sclerosis. Doubt Guillain-Robins syndrome. She has no evidence or significant risk factors for lung cancer that would result in Eaton-Lambert disease. However, she clearly has an abdominal mass that would be consistent with potential metastatic endometrial carcinoma versus appendiceal mucinous neoplasm or other such invasive tumor. Would also recommend gynecology consultation. She also now has evidence of deep venous thrombosis on ultrasound this morning which is quite extensive extending into the iliofemoral system. She will likely require systemic anticoagulation for such. Again, this would be a potential manifestation of not only her prolonged immobility but probable malignant disease. I discussed all the above with her in detail. We will obtain tumor markers. Nonetheless, I believe that her significant neurologic symptoms and progressive deterioration warrant a higher level facility for care. If she requires surgical intervention she will definitely need the services of a urologist for cystoscopy and ureter stent placement. I informed the patient that we do not have the services here at [facility]. Furthermore, she will need neurologic evaluation. She would be high risk for anesthesia given her weakened condition and progressive paralysis with high risk of respiratory failure following general anesthesia if she required any type of abdominal or pelvic surgery. I believe she would also benefit from an MRI of the abdomen and pelvis to better delineate the mass which I believe could also be approach with image guided needle biopsy for diagnostic purposes. Obviously, this will be complicated by her systemic anticoagulation now needed for her significant venous thromboembolism. All the above was discussed with the patient at length. All questions were answered to her satisfaction, and she voiced understanding. Orders were written.
--- NOTE | 2018-11-01 10:10 | P.CONS_ITS ---
History of Present Illness Date Patient Seen: 11/01/18 Time Patient Seen: 09:55 Chief complaint: N/D Reason for consult: Abdominal mass Requesting provider: Barbara Mclaughlin Narrative: 63-year-old female with complicated medical history who has had gradual debilitation over the last 6 months in her overall health status. She reports that in the February of 2018 she was doing quite well and functioning at her baseline. She lives alone and was able to perform all of her usual household duties and work full-time. She had no issues with pain or weakness but then began to notice gradual onset of progressive fatigue. She also began to have lower extremity weakness along with symptoms consistent with neuropathy in the finger tips and her toes. 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 Several months ago she began to have difficulties with balance and fell on her stairway. She suffer no injuries. She has no history of any other t raumas. She denies any fever or chills. No night sweats. No dysphagia. Appetite has been normal but she has continued to experience significant lower extremity weakness. She came to visit her parents locally for 2017 and she began to have multiple falls in their home environment. Eventually she was unable to ambulate unassisted after initially relying on a cane. She reports now that she is completely bedridden and unable to ambulate, and she has been in this situation for the last 1-2 months. She has sought extensive medical evaluation including neurology in [place], [place] where she was given the diagnosis of diabetic amyotrophic disorder. She is currently awaiting bianca reis at the [facility] for potential rehabilitation. She presented to the emergency department last evening at [facility] with complaints of abdominal pain and distention. Examination confirmed an extremely distended urinary bladder containing at least 3 L of urine. Patient states that she has not had any unusual sensation to urinate but on further history today states that she has gradually lost a sensation to urinate. Nonetheless she does urinate several times per day. She reports normal bowel function. No incontinence. In the emergency department Murcia catheter was inserted draining approximately 3.5 L of dark urine. Creatinine was elevated at 1.[address] scan prior to [place] catheter insertion revealed not only the distended urinary bladder but an obvious complex mass in the right pericolic gutter. Some hydronephrosis is present on the right side as well. She does have a history of endometrial adenocarcinoma found incidentally at the time of laparoscopic- assisted vaginal hysterectomy in October 2017. However, the tumor was quite isolated to the endometrium. Ovaries and fallopian tubes removed at that time and were otherwise normal according to the pathology report that is on the chart today. No lymph nodes were sampled. She had no other complications following surgery, and she states she was seen by Medical Oncology who recommended no further therapy. She denies any abdominal pain currently. 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 Social History household members: none Smoking Status: Never smoker additional social history: She lives at home. Meds Home Medications Medication Instructions Recorded Confirmed Type amlodipine 5 mg PO DAILY PRN 10/31/18 10/31/18 History gabapentin 300 mg PO TID 10/31/18 10/31/18 History ibuprofen 600 mg PO TID PRN 10/31/18 10/31/18 History metformin 1,000 mg PO BID 10/31/18 10/31/18 History Allergies Allergy/AdvReac Type Severity Reaction Status Date / Time No Known Drug Allergies Allergy Verified 10/31/18 21:27 Review of Systems Review of Systems All systems reviewed & are unremarkable except as noted in HPI and below Exam Vital Signs (past 8 hours): - 11/01/18 06:40 11/01/18 08:00 Temperature 97.6 F 97.7 F Pulse Rate 113 H 116 H Respiratory Rate 16 18 Blood Pressure 132/91 H 140/76 Pulse Oximetry 99 99 Oxygen Delivery Method Room Air Narrative Exam Narrative: Well-nourished well-developed female lying comfortably in bed in no acute distress. Alert oriented x3. She does have a mildly weak voice and speaks in shortened sentences. No dyspnea. No stridor. She is not tachypneic Chest clear to auscultation bilaterally. Regular rate and rhythm No crackles or wheezes Abdomen is soft, nondistended, no masses. No hepatomegaly. No obvious ascites. No significant tenderness. Murcia catheter is in place draining clear yellow urine this morning. 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 She has full range of motion of the shoulder, elbow, and wrist with what I would consider normal strength for her age group. Lower extremities, however, show significant weakness and she is barely able to dorsiflex her feet. Ft are otherwise perfused and dorsal pedis pulses are palpable bilaterally. Objective Labs Result Diagrams: 11/01/18 06:20 11/01/18 06:20 Labs: Laboratory Results - last 24 hr 10/31/18 10/31/18 10/31/18 20:35 20:35 20:35 WBC 15.1 H RBC 4.24 Hgb 12.5 Hct 37.2 MCV 87.7 MCH 29.4 MCHC 33.6 RDW 15.3 H Plt Count 266 Neut % (Auto) 84.0 H Lymph % (Auto) 5.8 L Sussex % (Auto) 9.1 Eos % (Auto) 0.4 L Baso % (Auto) 0.7 Neut # (Auto) 48924 H Lymph # (Auto) 900 L Sussex # (Auto) 1400 H Eos # (Auto) 100 Baso # (Auto) 100 Sodium 137 Potassium 3.7 Chloride 105 Carbon Dioxide 19 L BUN 33 H Creatinine 1.50 H Estimated GFR 35.3 L BUN/Creatinine Ratio 22.0 Glucose 123 H Lactate Calcium 9.6 Phosphorus Total Bilirubin 1.7 H AST 30 ALT 42 Alkaline Phosphatase 67 Total Creatine Kinase 176 H Troponin I Total Protein 7.8 Albumin 3.9 Globulin 3.9 Albumin/Globulin Ratio 1.0 Lipase 81 Urine Color Urine Appearance Urine pH Ur Specific Sharon Urine Protein Urine Glucose (UA) Urine Ketones Urine Occult Blood Urine Nitrate Urine Bilirubin Urine Ictotest Urine Urobilinogen Ur Leukocyte Esterase Urine RBC Urine WBC Ur Squamous Epith Cells Amorphous Sediment Urine Bacteria Ur Culture Indicated? 10/31/18 11/01/18 11/01/18 22:25 06:20 06:20 WBC 13.7 H RBC 3.76 L Hgb 11.0 L Hct 32.9 L MCV 87.7 MCH 29.3 MCHC 33.4 RDW 15.6 H Plt Count 222 Neut % (Auto) 81.4 H Lymph % (Auto) 7.6 L Sussex % (Auto) 10.2 Eos % (Auto) 0.6 L Baso % (Auto) 0.2 Neut # (Auto) 71437 H Lymph # (Auto) 1000 L Sussex # (Auto) 1400 H Eos # (Auto) 100 Baso # (Auto) 0 Sodium Potassium Chloride Carbon Dioxide BUN Creatinine Estimated GFR BUN/Creatinine Ratio Glucose Lactate 1.0 Calcium Phosphorus Total Bilirubin AST ALT Alkaline Phosphatase Total Creatine Kinase Troponin I Total Protein Albumin Globulin Albumin/Globulin Ratio Lipase Urine Color Linnea Urine Appearance Cloudy Urine pH 5.0 Ur Specific Sharon 1.020 Urine Protein 1+ H Urine Glucose (UA) Negative Urine Ketones Negative Urine Occult Blood 3+ H Urine Nitrate Negative Urine Bilirubin 1+ H Urine Ictotest Negative Urine Urobilinogen 0.2 Ur Leukocyte Esterase Negative Urine RBC >100/hpf H Urine WBC None seen Ur Squamous Epith Cells 0-1 /hpf Amorphous Sediment 4+ Urine Bacteria None seen Ur Culture Indicated? Cult not indicated 11/01/18 11/01/18 06:20 06:20 WBC RBC Hgb Hct MCV MCH MCHC RDW Plt Count Neut % (Auto) Lymph % (Auto) Sussex % (Auto) Eos % (Auto) Baso % (Auto) Neut # (Auto) Lymph # (Auto) Sussex # (Auto) Eos # (Auto) Baso # (Auto) Sodium 138 Potassium 3.4 Chloride 108 H Carbon Dioxide 20 L BUN 32 H Creatinine 1.20 H Estimated GFR 45.7 L BUN/Creatinine Ratio 26.7 H Glucose 96 Lactate Calcium 8.7 Phosphorus 3.7 Total Bilirubin AST ALT Alkaline Phosphatase Total Creatine Kinase 170 H Troponin I 0.065 H Total Protein Albumin 3.0 L Globulin Albumin/Globulin Ratio Lipase Urine Color Urine Appearance Urine pH Ur Specific Sharon Urine Protein Urine Glucose (UA) Urine Ketones Urine Occult Blood Urine Nitrate Urine Bilirubin Urine Ictotest Urine Urobilinogen Ur Leukocyte Esterase Urine RBC Urine WBC Ur Squamous Epith Cells Amorphous Sediment Urine Bacteria Ur Culture Indicated? I reviewed her records from her vaginal hysterectomy last year. Findings are as above. I reviewed her CT scan of the abdomen and pelvis done here in the emergency department last night. Again, findings are as above. There is a complex mucinous appearing mass in the right pericolic gutter. No retroperitoneal lymphadenopathy. No obvious hepatic lesions. CT scan of the head was done at an outlying institution in July 2018. I personally reviewed these films. There is no obvious intracranial lesion. We do not yet have access to the records from her neurology consultation in [place], [place]. She states she had an MRI of the spine which was normal. We are trying to obtain those records now. Assessment & Plan Assessment & Plan narrative: 63-year-old female with complic ated medical history and evidence of progressive neurologic degeneration. She appears to have presented with neurogenic bladder. Overall symptoms over the last 6 months would tend to suggest a deteriorating neurologic disorders such as ALS or multiple sclerosis. Doubt Guillain-Forsan syndrome. She has no evidence or significant risk factors for lung cancer that would result in Eaton-Lambert disease. However, she clearly has an abdominal mass that would be consistent with potential metastatic endometrial carcinoma versus appendiceal mucinous neoplasm or other such invasive tumor. Would also recommend gynecology consultation. She also now has evidence of deep venous thrombosis on ultrasound this morning which is quite extensive extending into the iliofemoral system. She will likely require systemic anticoagulation for such. Again, this would be a potential manifestation of not only her prolonged immobility but probable malignant disease. I discussed all the above with her in detail. We will obtain tumor markers. Nonetheless, I believe that her significant neurologic symptoms and progressive deterioration warrant a higher level facility for care. If she requires surgical intervention she will definitely need the services of a urologist for cystoscopy and ureter stent placement. I informed the patient that we do not have the services here at [facility]. Furthermore, she will need neurologic evaluation. She would be high risk for anesthesia given her weakened condition and progressive paralysis with high risk of respiratory failure following general anesthesia if she required any type of abdominal or pelvic surgery. I believe she would also benefit from an MRI of the abdomen and pelvis to better delineate the mass which I believe could also be approach with image guided needle biopsy for diagnostic purposes. Obviously, this will be complicated by her systemic anticoagulation now needed for her significant venous thromboembolism. All the above was discussed with the patient at length. All questions were answered to her satisfaction, and she voiced understanding. Orders were written.
--- NOTE | 2018-11-01 10:30 | PT.IPTN ---
Physical Therapy Treatment Note M3 PT-IP Subjective Start: 11/01/18 10:26 Freq: NEEDED Status: Active Protocol: Document 11/01/18 10:26 AB (Rec: 11/01/18 10:29 AB [id number]) Subjective Physical Therapy Visit Type Notes per Dr. Mclaughlin: d/c PT eval order. pt not appropriate for PT intervention at this time.
[2018-11-01 10:45] LABS: Cancer Antigen 125 < 6 U/mL (0-35); Carcinoembryonic Antigen 1.3 ng/mL (0.1-3.0)
--- NOTE | 2018-11-01 11:58 | CM.DANOTE ---
DCP: Case received, EMR reviewed and met with patient. Introduced self and role. DCP template completed with information currently available. Patient is a 63 year old female who admitted yesterday evening to the care of the hospitalist team. PCP: Dr. Vera. Payer: confirmed: [facility]. Patient came to hospital with symptoms of nausea and vomiting, as well as abdominal pain. Patient was also noted to have urinary retention, secondary to a distended bladder. Patient is noted to have a pelvic mass, as well as possible ovarian mass. Patient is medically complicated. She is non-ambulatory secondary to diabetic complications. Patient has been bed bound, and also has diagnosis of DVT. Patient could potentially be transferred to a higher level care hospital, for she also needs neurologic eval. According to notes, DVT could also be secondary to malignancy. Spoke to patient this morning. Pleasant, alert and oriented. She has been living in [place] with her aunt and father. She stated that her aunt will soon be leaving, and her dad will be there. She is immobile, has a wheel-chair, and needs care with showers, meals. She is originally from [place], and came here in July to visit her parents, and started having multiple falls. She stated that the plan was for her to originally go to [facility], but was pending. P: DCP to follow closely. Patient has high medical needs, and is not medically stable at this time. There is a chance that she will be transferred to a higher level hospital. Dr. Sanchez is also planning on seeing patient today. Paradise Lizarraga RN/Spoke Maker
[2018-11-01] MEDS: HYDROCODONE/ACET 5/325 TABLET 1 TAB PO (13:03)
[2018-11-01] MEDS: DEXTROSE 5%-0.9% NS 1,000 ML 125 ML IV ×2 (13:07→21:02)
--- NOTE | 2018-11-01 19:17 | PM.EVENT ---
Date Patient Seen: 11/01/[address] and MRI of abdomen and pelvis, as well as, doppler ultrasound of bilateral lower extremity with patient and her father. In the process of working on transferring the patient for higher level of care for multiple subspecialty support including: keyboard specialist, oncology, neurology, and Interventional Radiology. The patient needs IVC filter placement for bilateral lower extremity DVTs in order to obtain IR guided biopsy of abdominal mass, possible surgical intervention with blanker operator/General Surgery for removal of tumors and Oncology for treatment of tumors. [facility] is in process of reviewing abdominal films for pending transfer.
--- NOTE | 2018-11-01 19:20 | P.EN_ITS ---
Date Patient Seen: 11/01/[address] and MRI of abdomen and pelvis, as well as, doppler ultrasound of bilateral lower extremity with patient and her father. In the process of working on transferring the patient for higher level of care for multiple subspecialty support including: handyperson, oncology, neurology, and Interventional Radiology. The patient needs IVC filter placement for bilateral lower extremity DVTs in order to obtain IR guided biopsy of abdominal mass, possible surgical intervention with park recreation manager/General Surgery for removal of tumors and Oncology for treatment of tumors. [facility] is in process of reviewing abdominal films for pending transfer.
[2018-11-02] VITALS (7 sets, daily range): BP systolic 135–150; BP diastolic 84–95; PULSE 116–124; RESP 16–20; TEMP 36.4–36.9; O2SAT 100; BMI 34.9
[2018-11-02] MEDS: HYDROCODONE/ACET 5/325 TABLET 1 TAB PO (03:03)
[2018-11-02] MEDS: DEXTROSE 5%-0.9% NS 1,000 ML 125 ML IV (04:54)
[2018-11-02 06:19] LABS: Add Manual Diff / Slide Review NO; Basophils Absolute Auto 0 /uL (0-100); Basophils Percent Auto 0.4 % (0-2); Eosinophils Absolute Auto 200 /uL (0-450); Eosinophils Percent Auto 1.5 % (2-4); Hematocrit 29.5 % (36-46); Hemoglobin 9.8 g/dL (12.0-16.0); Lymphocytes Absolute Auto 800 /uL (1100-4500); Lymphocytes Percent Auto 7.3 % (25-40); Mean Corpuscular HGB Conc 33.3 % (30-36); Mean Corpuscular Hemoglobin 29.5 PG (26-34); Mean Corpuscular Volume 88.7 fL (80-100); Monocytes Absolute Auto 1100 /uL (0-900); Monocytes Percent Auto 10.5 % (3-14); Neutrophils Absolute Auto 8200 /uL (1500-7000); Neutrophils Percent Auto 80.3 % (50-75); Platelet Count 212 X10^3/uL (150-400); Red Blood Cell Count 3.33 X10^6/uL (4.0-5.2); White Blood Cell Count 10.2 X10^3/uL (4.5-11.0)
[2018-11-02 06:22] LABS: Alanine Aminotransferase 39 IU/L (9-52); Albumin 2.5 g/dL (3.5-5.0); Albumin Globulin Ratio 0.8 (1.0-2.8); Alkaline Phosphatase 45 U/L (38-126); Aspartate Aminotransferase 23 IU/L (14-36); Bilirubin Total 0.9 mg/dL (0.2-1.3); Blood Urea Nitrogen 23 mg/dL (7-17); Calcium 8.2 mg/dL (8.4-10.2); Carbon Dioxide 20 mmol/L (22-32); Chloride 113 mmol/L (98-107); Estimated Glomerular Filt Rate 56.4 mL/min (>60); Globulin 3.1 g/dL (1.7-4.1); Glucose 120 mg/dL (80-110); HEMOLYSIS < 15 (0-50); Magnesium 1.7 mg/dL (1.6-2.3); Potassium 3.4 mmol/L (3.4-5.1); Sodium 141 mmol/L (137-145); Total Protein 5.6 g/dL (6.3-8.2)
--- NOTE | 2018-11-02 06:29 | PC.NURSE ---
Patient has been drowsy and unable to move BLEs, turned Q2h, oriented and appropriate when awake. SR/ST on Telemetry 90s-120, RA SpO2 100%, denies shortness of breath, states she has sensation and pain to both legs, 1 Vicodin given per prn with sip water, no choking noted. CBG at 0230 = 100. D5NS at 125ml/hr, UOP for shift 175ml tea colored in [place].
[2018-11-02] MEDS: ENOXAPARIN 100 MG/ML SYRINGE 90 MG SUBCUT ×2 (08:33→20:12)
--- NOTE | 2018-11-02 08:59 | PM.PN.1 ---
Subjective Date Patient Seen: 11/02/18 Time Patient Seen: 08:59 Interval history: Patient denies any pain. No nausea or vomiting. Her baseline lower extremity weakness remains unchanged. She is somewhat hungry this morning. Denies any chest pain or shortness of breath. No dyspnea. No subjective fever or chills. Exam Vital Signs (past 8 hours): - 11/02/18 03:16 11/02/18 08:00 Temperature 98.5 F 97.6 F Pulse Rate 121 H 117 H Respiratory Rate 16 18 Blood Pressure 137/93 H 137/88 Pulse Oximetry 100 100 Oxygen Delivery Method Room Air Oxygen Flow Rate 0 Narrative Exam Narrative: Well-nourished well-developed female lying in bed in no acute distress. Alert oriented x3. Chest clear auscultation but she is tachycardic She has had no fevers Urine output is adequate but still remains somewhat dark in the [place]cia bag Abdomen is soft, nondistended, nontender, no masses Neurologic examination remains unchanged Objective Labs Result Diagrams: 11/02/18 05:35 11/02/18 05:35 Labs: Laboratory Results - last 24 hr 11/01/18 11/01/18 11/02/18 06:20 06:20 05:35 WBC 10.2 RBC 3.33 L Hgb 9.8 L Hct 29.5 L MCV 88.7 MCH 29.5 MCHC 33.3 RDW 16.0 H Plt Count 212 Neut % (Auto) 80.3 H Lymph % (Auto) 7.3 L Fisher % (Auto) 10.5 Eos % (Auto) 1.5 L Baso % (Auto) 0.4 Neut # (Auto) 8200 H Lymph # (Auto) 800 L Fisher # (Auto) 1100 H Eos # (Auto) 200 Baso # (Auto) 0 Sodium Potassium Chloride Carbon Dioxide BUN Creatinine Estimated GFR BUN/Creatinine Ratio Glucose Calcium Magnesium Total Bilirubin AST ALT Alkaline Phosphatase Total Protein Albumin Globulin Albumin/Globulin Ratio Carcinoembryonic Ag 1.3 CA 125 Antigen < 6 11/02/18 05:35 WBC RBC Hgb Hct MCV MCH MCHC RDW Plt Count Neut % (Auto) Lymph % (Auto) Fisher % (Auto) Eos % (Auto) Baso % (Auto) Neut # (Auto) Lymph # (Auto) Fisher # (Auto) Eos # (Auto) Baso # (Auto) Sodium 141 Potassium 3.4 Chloride 113 H Carbon Dioxide 20 L BUN 23 H Creatinine 1.00 Estimated GFR 56.4 L BUN/Creatinine Ratio 23.0 H Glucose 120 H Calcium 8.2 L Magnesium 1.7 Total Bilirubin 0.9 AST 23 ALT 39 Alkaline Phosphatase 45 Total Protein 5.6 L Albumin 2.5 L Globulin 3.1 Albumin/Globulin Ratio 0.8 L Carcinoembryonic Ag CA 125 Antigen Tumor markers are still pending but the CEA is normal Assessment & Plan Assessment & Plan narrative: 63-year-old female with multiple complicated medical conditions now with diagnosis of acute iliofemoral DVT in the setting of an apparent malignant mass in the abdomen. Her malignancy as well as her progressive loss of mobility have obviously made her high risk for the DVT. Nevertheless I believe she could potentially benefit from catheter directed thrombolysis at an institution with the necessary interventional radiology services for such. Not only with this potentially diminish her risk of pulmonary embolism but also possibly avoid long-term post thrombotic syndrome in her lower extremities. She may also require placement of a removable inferior vena cava filter for such procedure which would also be potentially necessary for any biopsies or surgical procedure she may require for the abdominal mass since her anticoagulation will be stopped for those interventions. She is aware that these services are not available at [facility]. I agree that she does not require urgent surgery for the mass, the biopsy and eventual surgery may be indicated as above. In my opinion, any laparotomy with resection would also require urology consultation with ureteral stent placements. Again, those services are not available at this institution. I also believe that neurology services would be beneficial for ongoing evaluation of the ascending paralysis, which may represent an underlying unrelated neurodegenerative disorder versus a neoplastic syndrome. I reviewed all of these issues with the patient thoroughly this morning. I have also discussed the case with Dr. Mclaughlin again today. She is attempting to arrange transfer to the [facility] today if possible for the above reasons. I certainly agree with such. Patient is also agreeable to the plan once we can find an institution with open bed availability and accepting hospitalist. General surgery services here at [facility] be available should she have any acute changes until the time of transfer.
--- NOTE | 2018-11-02 09:08 | P.PN_ITS ---
Subjective Date Patient Seen: 11/02/18 Time Patient Seen: 08:59 Interval history: Patient denies any pain. No nausea or vomiting. Her baseline lower extremity weakness remains unchanged. She is somewhat hungry this morning. Denies any chest pain or shortness of breath. No dyspnea. No s ubjective fever or chills. Exam Vital Signs (past 8 hours): - 11/02/18 03:16 11/02/18 08:00 Temperature 98.5 F 97.6 F Pulse Rate 121 H 117 H Respiratory Rate 16 18 Blood Pressure 137/93 H 137/88 Pulse Oximetry 100 100 Oxygen Delivery Method Room Air Oxygen Flow Rate 0 Narrative Exam Narrative: Well-nourished well-developed female lying in bed in no acute distress. Alert oriented x3. Chest clear auscultation but she is tachycardic She has had no fevers Urine output is adequate but still remains somewhat dark in the [place] bag Abdomen is soft, nondistended, nontender, no masses Neurologic examination remains unchanged Objective Labs Result Diagrams: 11/02/18 05:35 11/02/18 05:35 Labs: Laboratory Results - last 24 hr 11/01/18 11/01/18 11/02/18 06:20 06:20 05:35 WBC 10.2 RBC 3.33 L Hgb 9.8 L Hct 29.5 L MCV 88.7 MCH 29.5 MCHC 33.3 RDW 16.0 H Plt Count 212 Neut % (Auto) 80.3 H Lymph % (Auto) 7.3 L [place] % (Auto) 10.5 Eos % (Auto) 1.5 L Baso % (Auto) 0.4 Neut # (Auto) 8200 H Lymph # (Auto) 800 L [place] # (Auto) 1100 H Eos # (Auto) 200 Baso # (Auto) 0 Sodium Potassium Chloride Carbon Dioxide BUN Creatinine Estimated GFR BUN/Creatinine Ratio Glucose Calcium Magnesium Total Bilirubin AST ALT Alkaline Phosphatase Total Protein Albumin Globulin Albumin/Globulin Ratio Carcinoembryonic Ag 1.3 CA 125 Antigen < 6 11/02/18 05:35 WBC RBC Hgb Hct MCV MCH MCHC RDW Plt Count Neut % (Auto) Lymph % (Auto) [place] % (Auto) Eos % (Auto) Baso % (Auto) Neut # (Auto) Lymph # (Auto) [place] # (Auto) Eos # (Auto) Baso # (Auto) Sodium 141 Potassium 3.4 Chloride 113 H Carbon Dioxide 20 L BUN 23 H Creatinine 1.00 Estimated GFR 56.4 L BUN/Creatinine Ratio 23.0 H Glucose 120 H Calcium 8.2 L Magnesium 1.7 Total Bilirubin 0.9 AST 23 ALT 39 Alkaline Phosphatase 45 Total Protein 5.6 L Albumin 2.5 L Globulin 3.1 Albumin/Globulin Ratio 0.8 L Carcinoembryonic Ag CA 125 Antigen Tumor markers are still pending but the CEA is normal Assessment & Plan Assessment & Plan narrative: 63-year-old female with multiple complicated medic al conditions now with diagnosis of acute iliofemoral DVT in the setting of an apparent malignant mass in the abdomen. Her malignancy as well as her progressive loss of mobility have obviously made her high risk for the DVT. Nevertheless I believe she could potentially benefit from catheter directed thrombolysis at an institution with the necessary interventional radiology services for such. Not only with this potentially diminish her risk of pulmonary embolism but also possibly avoid long-term post thrombotic syndrome in her lower extremities. She may also require placement of a removable inferior vena cava filter for such procedure which would also be potentially necessary for any biopsies or surgical procedure she may require for the abdominal mass since her anticoagulation will be stopped for those interventions. She is aware that these services are not available at [facility]. I agree that she does not require urgent surgery for the mass, the biopsy and eventual surgery may be indicated as above. In my opinion, any laparotomy with resection would also require urology consultation with ureteral stent placements. Again, those services are not available at this institution. I also believe that neurology services would be beneficial for ongoing evaluation of the ascending paralysis, which may represent an underlying unrelated neurodegenerative disorder versus a neoplastic syndrome. I reviewed all of these issues with the patient thoroughly this morning. I have also discussed the case with Dr. Mclaughlin again today. She is attempting to arrange transfer to the [facility] today if possible for the above reasons. I certainly agree with such. Patient is also agreeable to the plan once we can find an institution with open bed availability and accepting hospitalist. General surgery services here at [facility] be available should she have any acute changes until the time of transfer.
--- NOTE | 2018-11-02 11:36 | CM.DPC ---
DCP Cont: Discussed patient at team rounds. Dr. Mclaughlin, hospitalist, has found accepting hospital. [facility] will have availabilities later today. Patient is in need of catheter thrombolytics, possibly a vena cava filter, due to size and location of this blood clot. Discussion was also involving ACLS transport versus air lift. Due to timing, and possible more unsteady movement in vehicle, they will attempt patient to be air lifted. Nito, charge nurse, will be working on this. This may not occur until this evening. This depends on timing of when patient can be accepted. P: Patient will be transferred to [facility] due to medical complexity, and her care needs. Patient is on board with this. Family members have been in to visit with patient. Paradise Lizarraga RN/Correction Officer Head
--- NOTE | 2018-11-02 14:22 | P.DS_ITS ---
History of Present Illness Date Patient Seen: 11/01/18 Chief complaint: N/D Narrative: Written by Arianna JORDAN: The patient is a 63-year-old AA female who presented to the ED with a 3 week history of nausea and vomiting. Patient has been having progressively deteriorating state of health since February of 2018. Prior to that she notes herself to be fairly healthy and fully ambulatory w/ PMH of HTN and DM 2T. Associated symptoms include difficulty swallowing (new symptom for patient ); h owever, she does note being able to manage oral secretions. Reports abdominal distention and dyspepsia; but no overt abdominal pain. Reports subjective fever and chills. Experienced dizziness and lightheadedness w/ position change. Patient reports an unintentional weight loss of 70-80 lb weight loss over the past 6 months. Notes joint and muscle pain. Reports progressive loss of function of lower extremities since March of 2018. Initially presented as lower back and hip pain (worse on the right) with progressive bilateral lower extremity weakness. Reports progressive loss of lower extremity function and ability to walk. Denies loss of bowel and bladder control. Currently, bed- bound and minimally ambulatory since July of 2018. Denies dysuria, hematuria. Notes decreased urine output. Reports having a neurosurgical evaluation w/ Micheline Nugent in July and a diagnosis of diabetic amyotrophy. Reports having EMG and MRI imaging done at that time. Patient was diagnosed with intramural leiomyoma and underwent laparoscopic- assisted hysterectomy with BSO 1 year ago, respectively. 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 However, from what patient reports, she understood this as fairly benign. Reports being told of a [id number] follow up w/ [employer] OPERATOR Dr. Phuong Martinez [facility]. Patient's PCP is Dr. Clarissa Metzger [facility]. Prior to February of 2018 patient was fully in functionally independent. She lives on her own, however visited her parents (who are in ill state of health themselves) in fall and was unable to leave due to progressive debility. At present time her aunt is visiting to help with the care of the patient. Patient has extensive family history of malignancy, father (colon cancer), mother (uterine and colon cancer), and sister ( (40 y.o.), pancreatic cancer. ED evaluation revealed abnormal CT imaging Remarkable for enlarged fluid- filled central pelvic mass, distended bladder, concern for a large ovarian neoplasm, a load density mass lateral to the ascending colon and concern for metastatic lesion. Discharge Providers Date of admission: 11/01/18 10:15 Discharge Date: 11/02/18 Consults: 11/01/18 04:50 Consult to Software Reverse Engineer Routine Comment: 11/01/18 05:04 Consult to Discharge Planning Routine Comment: rehab placement 11/01/18 05:05 Consult to Physical Therapy Evaluate & Treat Comment: debility, deconditioning, diabetic amyotrophy Physician Instructions: Evaluate and Treat 11/01/18 06:35 Consult to General Surgery Routine Comment: Consulting Provider: Aroldo Starkey Reason for consultation: mass / metastatic lesion Has provider been notified: Yes 11/01/18 07:50 Consult to Obstetrics Routine Comment: Consulting Provider: Maria Luisa Martinez Reason for consultation: endometreoid adenocarcinoma, new neoplasm? Has provider been notified: No Discharge provider: Barbara Mclaughlin DO Summary Discharge Diagnosis: Right pelvic mass, present on admission. Active. -Possibly metastatic disease with history of endometrial adeno carcinoma grade 1 and intramural leiomyoma. -CT abdomen and pelvis with contrast remakable for low-density mass lateral to the ascending colon, 13.6 x 12.2 x 6.9 cm, consistent with mucin producing metastatic lesion. -MRI abdomen and pelvis demonstrated masslike structure along the right paracolic gutter extending into the pelvis with contrast enhancement and imaging characteristic of probable malignancy as well as ultrasound-documented DVT at the right lower extremity and groin area is seen to be present, nonocclusive, and does not extend at this time into the iliac veins on the right. -Consulted General surgery and transition nurse who recommend transfer to tertiary center for higher level of care as below. Ascending rapidly progressive paralysis, present on admission. Active. -Recent diagnosis of diabetic amyotrophy by neurosurgery, Dr. Micheline Nugent. DDx: likely neoplastic syndrome -Request placed for records from neurosurgery, per patient had an EMG and MRI done in July. -Patient presented with neurogenic distended bladder with 3 L output once [place] catheter with had been inserted. Dyspnea, present on admission. Stable. -Patient has right lower extremity DVT extending into common femoral vein. Possibly PE versus ascending paralysis. -Patient needs Neurology evaluation in addition to gynecological/ oncology evaluation at tertiary center as this likely represents neoplastic syndrome. Acute dysphagia, present on admission. Active. -Onset last 3 weeks. -Ordered speech therapy evaluation treatment, pending. -Continued diabetic diet. Acute kidney injury, present on admission. Resolved. -Likely prerenal azotemia due to hypovolemia and GI losses. -Initial creatinine 1.5. creatinine today 1.0. likely acute (baseline sCr unknown), present on admission - IV fluids - D/C metformin, received imaging with IV contrast - Trend renal fx Metabolic acidosis with normal AG, present on admission. Resolved. -Secondary to JASE, hypovolemia, GI losses. -Continued IV fluids. Acute leukocytosis, present on admission. Resolved. -Likely reactive. -Initial WBC 15.1. WBC today 10.2. -Subjective fever and chills. UA is not consistent with infectious process. No signs of infection, SIRS or sepsis. -Continued to trend CBC daily. -Blood cultures x2 Have no growth to date. Diabetes mellitus type 2, non-insulin using, chronic, present on admission. Stable. -Patient reports good diabetic control on metformin -Held metformin. -Continued low-dose correctional scale insulin and ACHS glucose checks. Hospital Course: Bina Roger is a 63-year-old female with a past medical history significant for diabetes mellitus type 2 with peripheral neuropathy, hypertension, recent hysterectomy for postmenopausal bleeding secondary to intramural leiomyoma with endometrial polyp that was positive for endometrial adenocarcinoma FIGO 1 for which she was lost to follow-up, and recent progressive ascending paralysis now bed-bound (with hardly appreciable wiggling of toes), who now presented with right lower quadrant abdominal pain and nausea. Upon admission she was found to have a masslike structure along the right paracolic gutter extending into the pelvis with contrast enhancement and imaging characteristic of probable malignancy as well as ultrasound-documented DVT at the right lower extremity and groin area is seen to be present, nonocclusive, and does not extend at this time into the iliac veins on the right. She was started on therapeutic Lovenox. General surgery and Gynecology were consulted and both subspecialties recommended transferring to tertiary center for several interventions including: Catheter directed thrombolysis of DVT, possible IVC filter placement, CT-guided tissue biopsy of right pelvic/abdominal mass, and gynecology /oncology for treatment once a tissue diagnosis is established. Status at Discharge Functional status at discharge: bed bound Overall status at discharge: patient is not back to baseline Exam Vital Signs (past 8 hours): - 11/02/18 08:00 11/02/18 11:00 Temperature 97.6 F Pulse Rate 117 H Respiratory Rate 18 Blood Pressure 137/88 Pulse Oximetry 100 100 Oxygen Delivery Method Room Air Oxygen Flow Rate 0 Narrative Exam Narrative: General: female lying in bed and in no acute distress, well-developed, well-nourished, appropriately interactive. HEENT: Normocephalic, atraumatic. External ears without defect. Pupils equal, round, and reactive to light. Anicteric sclerae, moist conjunctivae, and mild lid lag of right eye. Neck: Supple with full range of motion. No lymphadenopathy or thyromegaly. Cardiovascular: Regular rate and rhythm without murmurs, rubs, or gallops appreciated Pulmonary: Clear to auscultation bilaterally without crackles, wheezes, or rhonchi. Normal respiratory effort with no use of accessory muscles. Abdomen: Soft, obese, bowel sounds present, mild discomfort to palpation in right lower quadrant, nondistended. No hepatosplenomegaly or masses appreciated. Extremities: No clubbing, cyanosis, or edema. several small 1-2 cm scars scattered on bilateral lower extremities. Skin: Normal temperature, turgor, and texture; no rash, ulcers, or subcutaneous nodules appreciated. Neurological: Ascending paralysis affecting predominantly lower extremities with barely appreciable wiggling of toes. Unable to lift legs. Neurogenic bladder. Psychiatric: Normal mood and affect. Alert and oriented to person, place, and time. Objective Labs Result Diagrams: 11/02/18 05:35 11/02/18 05:35 Labs: Laboratory Results - last 24 hr 11/02/18 11/02/18 05:35 05:35 WBC 10.2 RBC 3.33 L Hgb 9.8 L Hct 29.5 L MCV 88.7 MCH 29.5 MCHC 33.3 RDW 16.0 H Plt Count 212 Neut % (Auto) 80.3 H Lymph % (Auto) 7.3 L [place] % (Auto) 10.5 Eos % (Auto) 1.5 L Baso % (Auto) 0.4 Neut # (Auto) 8200 H Lymph # (Auto) 800 L [place] # (Auto) 1100 H Eos # (Auto) 200 Baso # (Auto) 0 Sodium 141 Potassium 3.4 Chloride 113 H Carbon Dioxide 20 L BUN 23 H Creatinine 1.00 Estimated GFR 56.4 L BUN/Creatinine Ratio 23.0 H Glucose 120 H Calcium 8.2 L Magnesium 1.7 Total Bilirubin 0.9 AST 23 ALT 39 Alkaline Phosphatase 45 Total Protein 5.6 L Albumin 2.5 L Globulin 3.1 Albumin/Globulin Ratio 0.8 L Discharge Plan Discharge Plan Patient Disposition: Xfer [facility] Discharge Med Rec/Prescriptions Prescriptions: New enoxaparin [Lovenox] 100 mg/mL Syringe 90 mg subcut BID Qty: 1 RF: 0 Continued amlodipine 5 mg Tablet 5 mg PO DAILY PRN (Reason: Hypertension) RF: 0 metformin 1,000 mg Tablet 1,000 mg PO BID RF: 0 gabapentin 300 mg Capsule 300 mg PO TID RF: 0 ibuprofen 600 mg Tablet 600 mg PO TID PRN (Reason: Pain (Scale Score 1-3)) RF: 0 Discharge Data Attending Provider: Arianna Parks Admit Date/Time: 11/01/18 10:15
[2018-11-02] MEDS: GABAPENTIN 300 MG CAPSULE PO ×2 (16:34→20:13)
[2018-11-02] MEDS: SODIUM CHLORIDE 0.9% 500 ML 1000 ML IV (20:30)
[2018-11-03 09:57] LABS: CA 15-3 16 U/mL (< 32)
[2018-11-03 10:04] LABS: Cancer (Carbohydrate) Ag 19-9 < 3 U/mL (< 34)
== END 2018-11-02 22:11 | disposition short-term general hospital (02) | DRG 392 ==
LOC: ED 23:14 → AC 11-01 08:21
PROVIDERS: Internal Medicine; Surgery; Admitting Provider Nurse Practitioner Gerontology; Emergency Provider Emergency Medicine; Visit Provider Nurse Practitioner Gerontology
DX: R19.00 Intra-abdominal and pelvic swelling, mass and lump, unspecified site (principal); C79.89 Secondary malignant neoplasm of other specified sites; N17.9 Acute kidney failure, unspecified; E87.2 Acidosis; I82.421 Acute embolism and thrombosis of right iliac vein; G82.20 Paraplegia, unspecified; R33.9 Retention of urine, unspecified; Z74.01 Bed confinement status; D72.829 Elevated white blood cell count, unspecified; E13.44 Other specified diabetes mellitus with diabetic amyotrophy; Z79.84 Long term (current) use of oral hypoglycemic drugs; Z85.42 Personal history of malignant neoplasm of other parts of uterus; R06.00 Dyspnea, unspecified; R13.10 Dysphagia, unspecified; R00.0 Tachycardia, unspecified; Z23 Encounter for immunization
CPT/HCPCS: 36415; 36591; 51701; 72197; 74177; 76700; 80053; 80069; 81001; 82378; 82550; 82962; 83605; 83690; 83735; 84484; 85025; 86300; 86301; 86304; 87040; 90471; 90656; 93970; 94762; 96361; 96374; 99284; 99285; G0378; A9579; J1650; J2405; Q2038; Q9967